=== PATIENT | male | born 2000 | race Caucasian/White ===

== ENCOUNTER 2023-12-27 00:28 | Emergency (ER) | payer OTHER, SELFPAY ==
[2023-12-27 00:37] VITALS: BP 122/77; PULSE 61; RESP 16; TEMP 38; O2SAT 100; BMI 18.3
--- NOTE | 2023-12-27 00:50 | ED_ITS ---
HPI - General Adult General Chief complaint: Syncope Stated complaint: GLF at work hitting head Time Seen by Provider: 12/27/23 00:30 Source: patient Mode of arrival: Ambulatory History of Present Illness HPI narrative: 23-year-old male presents for evaluation left elbow pain and head injury that occurred approximately 1 hour prior to arrival. Patient states he was cleaning up after work and bent down to put something into a safe. He stood up and briefly blacked out, landing on his left elbow and then striking his left forehead against the ground. Patient states that he is here to ?make sure I do not have a concussion?. Denies headache, light sensitivity, nausea, vomiting Related Data Home Medications Medication Instructions Recorded Confirmed atomoxetine 60 mg capsule 60 mg PO QDAY ##0 05/30/17 (Strattera) Allergies Allergy/AdvReac Type Severity Reaction Status Date / Time No Known Allergies Allergy Uncoded 12/30/17 12:47 Review of Systems Review of Systems Narrative: See HPI Patient History Social History Smoking Status: Current some day smoker Smoking Status: Current some day smoker tobacco type: vaping alcohol intake frequency: holidays/special occasions only Substance Use Type: marijuana Exam Initial Vital Signs Initial Vital Signs: Vital Signs Temperature 100.4 F H 12/27/23 00:37 Pulse Rate 61 12/27/23 00:37 Respiratory Rate 16 12/27/23 00:37 Blood Pressure 122/77 12/27/23 00:37 Pulse Oximetry 100 12/27/23 00:37 Oxygen Delivery Method Room Air 12/27/23 00:37 Const: Awake, alert, no acute distress, nontoxic appearing HEENT: No step-offs, no rea sign, no hemotympanum, no raccoon eyes, PERRL Cardiac: regular rate, regular rhythm RESP: unlabored, clear bilaterally, no wheezing MSK: Minimal swelling over left olecranon Skin: Warm, Dry, intact, no rashes Neuro: AO x3, CN II-XII grossly intact, moves all extremities Course Vital Signs Vital signs: Vital Signs - 8 hr 12/27/23 00:37 Temperature 100.4 F H Pulse Rate 61 Respiratory Rate 16 Blood Pressure 122/77 Pulse Oximetry 100 Oxygen Delivery Method Room Air Medical Decision Making [facility] Narrative Medical decision making narrative: Minor head injury after orthostatic event. Patient was awake, alert, oriented, nexus and [place] head CT rules negative, no indication for imaging at this time. Patient told to take Tylenol and Motrin as needed for pain and to minimize screen time if he experiences headache. Note for work provided per patient request. Discharge Plan Departure Patient Disposition: Home Clinical Impression: Minor head injury Qualifiers: Encounter type: initial encounter Qualified Code(s): S09.90XA - Unspecified injury of head, initial encounter Instructions: DI for Closed Head Injury Activity Restrictions/Additional Instructions: Take Tylenol and Motrin as needed for pain. Minimize screen time if you are experiencing headaches or nausea. Get plenty of rest. Prescriptions: No Action atomoxetine [Strattera] 60 MG capsule 60 mg PO QDAY Qty: 0 Stand Alone Forms: Patient Portal/API, Work Release Note
--- NOTE | 2023-12-27 01:00 | PC.NURSE ---
Pt states that after standing up from ground he started to see black behind his eyes and fell. Only unconscious for a second or so. He bumped his left jewish no wound or bleeding noted. Left elbow sore. Pt completing L&I paperwork at this time.
== END 2023-12-27 01:14 | disposition home or self-care (01) ==
PROVIDERS: Emergency Provider Emergency Medicine
DX: S09.90XA Unspecified injury of head, initial encounter (principal); M25.522 Pain in left elbow; W18.30XA Fall on same level, unspecified, initial encounter; Y99.0 Civilian activity done for income or pay
CPT/HCPCS: 99281; 99282